=== PATIENT | female | born 1960 | race Hispanic/Latino ===

== ENCOUNTER 2018-06-19 09:08 | Emergency (ER) | payer SELFPAY ==
[2018-06-19] MEDS ORDERED: Proparacaine 0.5% Opth 15 ML BOT ONE (09:22)
[2018-06-19] MEDS ORDERED: Fluorescein Opthalmic Strip ONE (09:22)
== END 2018-06-19 09:48 | disposition home or self-care (01) ==
LOC: ERS 09:08
DX: T78.40XA Allergy, unspecified, initial encounter (principal); I10 Essential (primary) hypertension; F41.9 Anxiety disorder, unspecified; Z79.899 Other long term (current) drug therapy
CPT/HCPCS: 99282